=== PATIENT | female | born 1970 | race Caucasian/White ===

== ENCOUNTER 2018-04-20 07:08 | Emergency (ER) | payer MEDICAID ==
[~2018-04-20] VITALS: Ht 167.6 cm; Wt 58.4 kg
[2018-04-20] MEDS ORDERED: PROP80TA PO (08:26)
[2018-04-20] MEDS ORDERED: OLAN5TAB9 PO (08:26)
[2018-04-20] MEDS ORDERED: SERT100T5 PO (08:26)
[2018-04-20] MEDS ORDERED: SODIUM CHLORIDE FLUSH 10ML SYR IVF ONE (08:30)
[2018-04-20] MEDS ORDERED: FAMOTIDINE 20 MG/2 ML IVP ONE (08:30)
[2018-04-20] MEDS ORDERED: LORazepam 2 MG/ML, 1ML IVPush ONE (08:30)
[2018-04-20] MEDS ORDERED: FAMOTIDINE 20 MG/2 ML ONE (08:37)
[2018-04-20] MEDS ORDERED: LORazepam 2 MG/ML, 1ML ONE (08:39)
[2018-04-20 08:40] LABS: BASOPHILS # (AUTO) 0.03 x10^3/uL (0-0.1); BASOPHILS % (AUTO) 1 % (0-1); EOSINOPHILS # (AUTO) 0.08 x10^3/uL (0-0.4); EOSINOPHILS % (AUTO) 1 % (1-7); LYMPHOCYTES # (AUTO) 1.71 x10^3/uL (1-3.4); LYMPHOCYTES % (AUTO) 28 % (22-44); MD NO; MEAN CORPUSCULAR HEMOGLOBIN 30.5 pg (27.0-34.8); MEAN CORPUSCULAR HGB CONC 33.3 g/dL (32.4-35.8); MEAN CORPUSCULAR VOLUME 91.7 fL (80-100); MEAN PLATELET VOLUME 8.6 fL (7.4-10.4); MONOCYTES # (AUTO) 0.35 x10^3/uL (0.2-0.8); MONOCYTES % (AUTO) 6 % (2-9); NEUTROPHILS % (AUTO) 64 % (42-75); PLATELET COUNT 257 x10^3/uL (130-400); RED BLOOD COUNT 4.76 x10^6/uL (3.82-5.3); RED CELL DISTRIBUTION WIDTH 12.9 % (9.6-15.2)
[2018-04-20 08:47] LABS: CULTURE INDICATED? YES; MICROSCOPIC INDICATED
[2018-04-20 08:52] LABS: ALANINE AMINOTRANSFERASE 17 U/L (12-78); ALBUMIN 3.7 g/dL (3.4-5.0); ANION GAP 6 mmol/L (5-15); CALCIUM 8.3 mg/dL (8.5-10.1); CHLORIDE 110 mmol/L (98-107); CREATININE 0.79 mg/dL (0.55-1.02)
[2018-04-20 08:54] LABS: ALKALINE PHOSPHATASE 87 U/L (45-117); BILIRUBIN,TOTAL 0.3 mg/dL (0.2-1.0); TOTAL PROTEIN 7.2 g/dL (6.4-8.2)
[2018-04-20 09:20] VITALS: BP 103/71
== END 2018-04-20 09:45 | disposition home or self-care (01) ==
LOC: ED 09:00
DX: N30.90 Cystitis, unspecified without hematuria (principal); F43.10 Post-traumatic stress disorder, unspecified; Z90.710 Acquired absence of both cervix and uterus
CPT/HCPCS: 36415; 74022; 80053; 81001; 83690; 85025; 87077; 87086; 96374; 96375; 99285; J2060; 87186; S0028

== ENCOUNTER 2018-05-21 07:36 | Emergency (ER) | payer MEDICAID ==
[~2018-05-21] VITALS: Ht 167.6 cm; Wt 58.3 kg
[~2018-05-21 07:36] MED LIST: OLAN5TAB9 PO; PROP80TA PO; SERT100T5 PO
[2018-05-21 09:31] VITALS: BP 111/76
== END 2018-05-21 09:35 | disposition home or self-care (01) ==
LOC: ED 09:24
DX: S46.912A Strain of unspecified muscle, fascia and tendon at shoulder and upper arm level, left arm, initial encounter (principal); S70.02XA Contusion of left hip, initial encounter; S50.02XA Contusion of left elbow, initial encounter; W01.0XXA Fall on same level from slipping, tripping and stumbling without subsequent striking against object, initial encounter; Y93.89 Activity, other specified; Y92.002 Bathroom of unspecified non-institutional (private) residence as the place of occurrence of the external cause; Y99.8 Other external cause status
CPT/HCPCS: 99284

== ENCOUNTER 2019-12-22 17:05 | Emergency (ER) | payer BC ==
[~2019-12-22] VITALS: Ht 170.2 cm; Wt 58.6 kg
[~2019-12-22 17:05] MED LIST changes: +SERT100T32 PO; -SERT100T5 PO
[2019-12-22 17:57] VITALS: BP 117/80
[2019-12-22 18:35] LABS: RAPID INFLUENZA A POSITIVE (Negative); RAPID INFLUENZA B Negative (Negative)
--- NOTE | 2019-12-22 18:53 | NUR ---
COUGH, BODY ACHES, RIB PAIN FOR 3 DAYS
--- NOTE | 2019-12-22 19:08 | NUR ---
given dc instruction pt understood pt up ambulated to check out
== END 2019-12-22 19:11 | disposition home or self-care (01) ==
LOC: ED 18:30
DX: J10.1 Influenza due to other identified influenza virus with other respiratory manifestations (principal); M79.10 Myalgia, unspecified site; Z90.710 Acquired absence of both cervix and uterus
CPT/HCPCS: 71046; 87400; 99284

== ENCOUNTER 2019-12-24 09:55 | Emergency (ER) | payer BC ==
[~2019-12-24] VITALS: Ht 170.2 cm; Wt 57.8 kg
[2019-12-24 10:02] VITALS: BP 137/92
[2019-12-24] MEDS ORDERED: KETOROLAC 30 MG/1 ML ONE (10:59)
[2019-12-24] MEDS ORDERED: KETOROLAC 30 MG/1 ML IM ONE (11:00)
== END 2019-12-24 11:14 | disposition home or self-care (01) ==
LOC: ED 11:01
DX: J10.1 Influenza due to other identified influenza virus with other respiratory manifestations (principal); M79.10 Myalgia, unspecified site
CPT/HCPCS: 96372; 99283; J1885

== ENCOUNTER 2020-06-14 10:18 | Emergency (ER) | payer BC ==
[~2020-06-14] VITALS: Ht 170.2 cm; Wt 63.5 kg
[2020-06-14 11:37] LABS: BASOPHILS # (AUTO) 0.03 x10^3/uL (0-0.1); BASOPHILS % (AUTO) 0 % (0-1); EOSINOPHILS # (AUTO) 0.16 x10^3/uL (0-0.4); EOSINOPHILS % (AUTO) 2 % (1-7); LYMPHOCYTES # (AUTO) 2.23 x10^3/uL (1-3.4); LYMPHOCYTES % (AUTO) 27 % (22-44); MD NO; MEAN CORPUSCULAR HEMOGLOBIN 30.2 pg (27.0-34.8); MEAN CORPUSCULAR HGB CONC 33.6 g/dL (32.4-35.8); MEAN CORPUSCULAR VOLUME 89.7 fL (80-100); MEAN PLATELET VOLUME 9.9 fL (7.4-10.4); MONOCYTES # (AUTO) 0.52 x10^3/uL (0.2-0.8); MONOCYTES % (AUTO) 6 % (2-9); NEUTROPHILS # (AUTO) 5.41 x10^3/uL (1.8-6.8); NEUTROPHILS % (AUTO) 65 % (42-75); PLATELET COUNT 243 x10^3/uL (130-400); RED CELL DISTRIBUTION WIDTH 12.7 % (9.6-15.2)
[2020-06-14 11:46] LABS: ALBUMIN 4.2 g/dL (3.4-5.0); ANION GAP 10 mmol/L (5-15); CALCIUM 9.6 mg/dL (8.5-10.1); CHLORIDE 106 mmol/L (98-107)
[2020-06-14 11:50] LABS: ALANINE AMINOTRANSFERASE 22 U/L (12-78); ALKALINE PHOSPHATASE 86 U/L (45-117); BILIRUBIN,TOTAL 0.4 mg/dL (0.2-1.0); CREATININE 1.05 mg/dL (0.55-1.02)
--- NOTE | 2020-06-14 11:51 | NUR ---
PT PRESENTS TO ED WITH INTERMITTENT LT FLANK PAIN, RETURNING THIS AM. PT REPORTS PAIN IS LIKE OTHER KIDNEY INFECTIONS AND STONES SHE HAS HAD IN THE PAST. DENIES ANY PROBLEMS URINATING, TRAUMA. AMBULATES WELL TO BATHROOM FOR UA. UA LABELLED AND SENT.
[2020-06-14 12:25] LABS: MICROSCOPIC INDICATED
--- NOTE | 2020-06-14 12:48 | NUR ---
PT CHART UP FOR RECHECK. NAD NOTED AT THIS TIME.
--- NOTE | 2020-06-14 13:01 | NUR ---
REPORT TO ROLAND MAS.
[2020-06-14 13:28] VITALS: BP 118/85
== END 2020-06-14 13:31 | disposition home or self-care (01) ==
LOC: ED 13:11
DX: N10 Acute pyelonephritis (principal); Z90.710 Acquired absence of both cervix and uterus
CPT/HCPCS: 36415; 80053; 81001; 83690; 85025; 87086; 99283